=== PATIENT | male | born 1990 | race Two or more races ===

== ENCOUNTER 2020-06-25 10:48 | Emergency (ER) | payer MEDICARE, OTHER ==
[~2020-06-25] VITALS: Ht 167.6 cm; Wt 107.0 kg
--- NOTE | 2020-06-25 10:57 | NUR ---
came to ER From [facility], staff called 911; seizure event lasting <30 seconds;BS-128 mm/dl. pt on depakote per report and pt is non compliant with medication. awaiting for md jacques
--- NOTE | 2020-06-25 11:08 | NUR ---
seen and evaluated by
[2020-06-25 11:21] LABS: BASOPHILS % (AUTO) 0.5 % (0.0-2.0); EOSINOPHILS % (AUTO) 1.4 % (0.0-6.0); HEMATOCRIT 45 % (39-51); HEMOGLOBIN 15.4 g/dL (13.5-17.5); LYMPHOCYTES # (AUTO) 1.9 /CMM (0.8-4.8); LYMPHOCYTES % (AUTO) 34.7 % (20.0-44.0); MEAN CORPUSCULAR HGB CONC 34 g/dl (31.0-36.0); MEAN CORPUSCULAR VOLUME 84 fL (80-96); MONOCYTES # (AUTO) 0.5 /CMM (0.1-1.30); MONOCYTES % (AUTO) 8.5 % (2.0-12.0); NEUTROPHILS # (AUTO) 3.1 /CMM (1.8-8.9); NEUTROPHILS % (AUTO) 54.9 % (43.0-81.0); PLATELET COUNT (AUTO) 140 /CMM (150-450); RED BLOOD CELL COUNT(AUTO) 5.37 MIL/uL (4.5-6.0); WHITE BLOOD COUNT (AUTO) 5.6 K/uL (4.3-11.0)
[2020-06-25] MEDS ORDERED: IV NS 0.9% 1,000 ML BAG IV ONE (11:30)
--- NOTE | 2020-06-25 11:40 | NUR ---
PT TO CT AT THIS TIME
[2020-06-25 11:47] LABS: CALCIUM, SERUM 8.8 mg/dL (8.5-10.1); POTASSIUM 4.1 mmol/L (3.5-5.1)
--- NOTE | 2020-06-25 11:50 | NUR ---
PT BACK FROM CT
--- NOTE | 2020-06-25 12:00 | NUR ---
PT PULLED L AC IV SITE OUT AND STATED HER IS HEARING VOICES , PT IS A/OX3, DR FARIAS NOTIFIED , NEW IV SITE INSEARTED ON R WRIST G20 . CONTINUE TO MONITOR .
[2020-06-25] MEDS ORDERED: DIVALPROEX SODIUM 500 MG TABLET.DR PO ONE ×2 (12:30→12:34)
[2020-06-25] MEDS ORDERED: ONDANSETRON HCL/PF 4 MG/2 ML VIAL ONE (12:35)
[2020-06-25] MEDS ORDERED: ONDANSETRON HCL/PF 4 MG/2 ML VIAL IV ONE (13:00)
--- NOTE | 2020-06-25 14:00 | NUR ---
PT GOING BACK TO [facility] VIA AMBULANCE PER MD ORDER , REPORT GIVEN TO FACILITY .
--- NOTE | 2020-06-25 15:32 | NUR ---
CALLED [facility] FOR TRANSPORT TO [facility]. ETA 1730.
--- NOTE | 2020-06-25 17:59 | NUR ---
RIG WRIST IV SITE DISCOUNTINUED , PT DISCHARGED TO [facility] PER MD GOULD, IN STABLE CONDITION VIA AMBULANCE .
[2020-06-25 18:03] VITALS: BP 135/62
== END 2020-06-25 18:11 ==
LOC: ER 10:53
DX: G40.909 Epilepsy, unspecified, not intractable, without status epilepticus (principal); R51.9 Headache, unspecified; R00.0 Tachycardia, unspecified; J45.909 Unspecified asthma, uncomplicated; Z88.8 Allergy status to other drugs, medicaments and biological substances; Z91.013 Allergy to seafood
CPT/HCPCS: 36415; 70450; 80048; 80164; 85025; 96361; 96374; 99285; J2405; J7030 ×2

== ENCOUNTER 2021-06-30 21:33 | Emergency (ER) | payer MEDICARE, OTHER ==
[~2021-06-30] VITALS: Ht 170.2 cm; Wt 114.8 kg
--- NOTE | 2021-06-30 21:42 | NUR ---
MADELIN FROM [facility] C/O WITNESSED 1 MIN SEIZURE. PT STATES HE HAS BEEN COMPLIENT WITH PRESCRIBED DEPAKOTE. PATIENT PLACED ON THE MONITOR VSS AND SEIZURE PRECAUTIONS HAVE BEEN IMPLEMENTED. MD WAS AT BEDSIDE FOR EVAL.
[2021-06-30 22:25] LABS: BASOPHILS % (AUTO) 0.4 % (0.0-2.0); EOSINOPHILS % (AUTO) 1.5 % (0.0-6.0); HEMATOCRIT 41 % (39-51); HEMOGLOBIN 13.9 g/dL (13.5-17.5); LYMPHOCYTES # (AUTO) 2.9 K/uL (0.8-4.8); LYMPHOCYTES % (AUTO) 35.3 % (20.0-44.0); MEAN CORPUSCULAR HGB CONC 34 g/dl (31.0-36.0); MEAN CORPUSCULAR VOLUME 87 fL (80-96); MONOCYTES # (AUTO) 0.9 K/uL (0.1-1.30); MONOCYTES % (AUTO) 11.3 % (2.0-12.0); NEUTROPHILS # (AUTO) 4.3 K/uL (1.8-8.9); NEUTROPHILS % (AUTO) 51.5 % (43.0-81.0); PLATELET COUNT (AUTO) 160 K/uL (150-450); RED BLOOD CELL COUNT(AUTO) 4.75 MIL/uL (4.5-6.0); WHITE BLOOD COUNT (AUTO) 8.2 K/uL (4.3-11.0)
--- NOTE | 2021-06-30 22:29 | NUR ---
PATIENT TAKEN TO CT
[2021-06-30 22:34] LABS: BILIRUBIN,URINE NEGATIVE (NEGATIVE); COLOR,URINE YELLOW (YELLOW); LEUKOCYTE ESTERASE ,URINE NEGATIVE (NEGATIVE); NITRITE, URINE NEGATIVE (NEGATIVE); PROTEIN,URINE NEGATIVE (NEGATIVE); UGLUCOSE NEGATIVE (NEGATIVE); UROBILINOGEN,URINE 0.2 EU/dL (0.2)
[2021-06-30 22:41] LABS: CALCIUM, SERUM 7.9 mg/dL (8.5-10.1); POTASSIUM 3.8 mmol/L (3.5-5.1)
--- NOTE | 2021-06-30 22:57 | NUR ---
spoke to Art at [facility] intake re pt's status after discharge. Art will give me a call back once he speaks to the supervisor record press
[2021-06-30 22:59] LABS: BACTERIA,URINE Few /HPF (None Seen); RBC,URINE 0-2 /HPF (0-2); SQUAMOUS EPITHELIAL CELL,UR Few /HPF (None Seen); WBC,URINE 0-2 /HPF (0-3)
[2021-06-30 23:00] LABS: URINE AMORPHOUS PHOSPHATES Many /HPF (None Seen)
--- NOTE | 2021-06-30 23:59 | NUR ---
COVID SWAB SENT
--- NOTE | 2021-07-01 02:11 | NUR ---
FACE SHEET AND CLINICALS WERE FAXED TO [facility]
--- NOTE | 2021-07-01 03:06 | NUR ---
SPOKE TO ART AT [facility]. PT WILL GO TO [facility]. PT AGREED. AWAITING FOR ACCEPTANCE INFO
--- NOTE | 2021-07-01 04:41 | NUR ---
PT SLEEPING COMFORTABLY BREATHING EVEN AND UNLABORED. EASILY AROUSABLE VITAL SIGNS STABLE.
--- NOTE | 2021-07-01 08:59 | NUR ---
Patient discharged to home in stable condition. Written and verbal after care instructions given. Patient verbalizes understanding of instruction.
[2021-07-01 09:04] VITALS: BP 111/71
== END 2021-07-01 09:04 | disposition home or self-care (01) ==
LOC: ER 21:36
DX: G40.909 Epilepsy, unspecified, not intractable, without status epilepticus (principal); R45.851 Suicidal ideations; F17.200 Nicotine dependence, unspecified, uncomplicated; Z88.8 Allergy status to other drugs, medicaments and biological substances; J45.909 Unspecified asthma, uncomplicated; I10 Essential (primary) hypertension; Z20.822 Contact with and (suspected) exposure to COVID-19
CPT/HCPCS: 36415; 70450-TC; 71045-TC; 80048-TC; 80164-TC; 81001; 85025-TC; C9803

== ENCOUNTER 2022-08-12 16:05 | Emergency (ER) | payer MEDICARE, OTHER ==
[~2022-08-12] VITALS: Ht 170.2 cm; Wt 99.8 kg
--- NOTE | 2022-08-12 16:10 | NUR ---
BIBRA81 FRM SCHVN C/O SUDDEN ONSET CHEST PAIN X 1 HOUR. ASP 325 AND NITRO GIVEN SALES PROGRAM COORDINATOR W/ MINIMAL RELIEF. PLACED ON BED, AAOX4, ATTACHED TO MONITOR SHOWS SINUS RHYTHM ME- 85. SATURATING AT 98%RA.
[2022-08-12] MEDS ORDERED: LORAZEPAM INJ 2 MG/ML VIAL ONE ×2 (18:24→20:55)
--- NOTE | 2022-08-12 18:50 | NUR ---
URINE COLLECTED AND SENT TO LAB
[2022-08-12 18:52] LABS: CALCIUM, SERUM 8.9 mg/dL (8.5-10.1); CARBON DIOXIDE 25 mmol/L (21-32); CHLORIDE 103 mmol/L (98-107); CREATININE 1.1 mg/dL (0.6-1.3); GLUCOSE 88 mg/dL (74-106); POTASSIUM 3.3 mmol/L (3.5-5.1); SODIUM SERUM 137 mmol/L (136-145); UREA NITROGEN, BLOOD 15 mg/dL (7-18)
--- NOTE | 2022-08-12 18:53 | NUR ---
COVID SWAB DONE AND SENT TO LAB
--- NOTE | 2022-08-12 19:24 | NUR ---
PT A/OX4. TOLERATING R/A WELL WITH NO RESP DISTRESS. PT DENIES PAIN AT THIS TIME. ISABEL #20G S/L PATENT AND INTACT. CONNECTED TO POX AND MONITOR.
[2022-08-12] MEDS ORDERED: LORAZEPAM INJ 2 MG/ML VIAL IM ONE (19:30)
[2022-08-12] MEDS ORDERED: LORAZEPAM INJ 2 MG/ML VIAL IV ONE ×2 (19:30→21:00)
[2022-08-12 19:47] LABS: BASOPHILS % (AUTO) 0.1 % (0.0-2.0); EOSINOPHILS % (AUTO) 0.8 % (0.0-6.0); HEMATOCRIT 45 % (39-51); HEMOGLOBIN 15.6 g/dL (13.5-17.5); LYMPHOCYTES # (AUTO) 2.6 K/uL (0.8-4.8); MEAN CORPUSCULAR HGB CONC 34 g/dl (31.0-36.0); MEAN CORPUSCULAR VOLUME 83 fL (80-96); MONOCYTES # (AUTO) 0.6 K/uL (0.1-1.30); NEUTROPHILS # (AUTO) 4.7 K/uL (1.8-8.9); NEUTROPHILS % (AUTO) 59.1 % (43.0-81.0); PLATELET COUNT (AUTO) 206 K/uL (150-450); RED BLOOD CELL COUNT(AUTO) 5.45 MIL/uL (4.5-6.0); WHITE BLOOD COUNT (AUTO) 7.9 K/uL (4.3-11.0)
[2022-08-12] MEDS ORDERED: LEVETIRACETAM (500MG) 500 MG/5 ML VIAL IV ONE (20:55)
[2022-08-12] MEDS ORDERED: LEVETIRACETAM (500MG) 1,500 MG in IV NS 0.9% 100 ML IV SCH (21:00)
--- NOTE | 2022-08-12 21:14 | NUR ---
Patient does not wish to proceed with medical care recommended by Dr. [place]. Patient given information related to possible complications, up to and including , which could occur as a result of leaving the hospital at this time. Patient verbalizes understanding of risks involved due to leaving against medical advice. Patient has signed AMA form. IV removed. Catheter intact and site benign. Pressure and 4x4 applied to site. No bleeding noted. Pt ambulatory with a steady gait
[2022-08-12 21:33] VITALS: BP 120/75
== END 2022-08-12 21:15 | disposition left against medical advice (07) ==
LOC: ER 16:08
DX: G40.909 Epilepsy, unspecified, not intractable, without status epilepticus (principal); R07.9 Chest pain, unspecified; Z20.822 Contact with and (suspected) exposure to COVID-19; J45.909 Unspecified asthma, uncomplicated; Z88.8 Allergy status to other drugs, medicaments and biological substances; Z91.09 Other allergy status, other than to drugs and biological substances; I10 Essential (primary) hypertension; R94.31 Abnormal electrocardiogram [ECG] [EKG]; Z79.899 Other long term (current) drug therapy
CPT/HCPCS: 99291; 96372; 93005; 71045; 70450; 85025; 80048; 36415; 84484; 87426; 80320; 80307; J2060; C9803; G0480; J1953; J7030

== ENCOUNTER 2022-11-23 06:49 | Emergency (ER) | payer MEDICARE, OTHER ==
[~2022-11-23] VITALS: Ht 170.2 cm; Wt 102.1 kg
--- NOTE | 2022-11-23 07:00 | NUR ---
[id number]. S/P SEIZURE DESCRIBED TONIC CLONIC. PT REPORTS FEELING THE AURA AND LIED ON THE FLOIOR
--- NOTE | 2022-11-23 08:19 | NUR ---
Patient discharged to home in stable condition. Written and verbal after care instructions given. Patient verbalizes understanding of instruction.IV removed. Catheter intact and site benign. Pressure and 4x4 applied to site. No bleeding noted.
[2022-11-23 08:20] VITALS: BP 124/70
== END 2022-11-23 08:21 | disposition home or self-care (01) ==
LOC: ER 06:59
DX: G40.909 Epilepsy, unspecified, not intractable, without status epilepticus (principal); I10 Essential (primary) hypertension; J45.909 Unspecified asthma, uncomplicated; F17.200 Nicotine dependence, unspecified, uncomplicated; Z88.8 Allergy status to other drugs, medicaments and biological substances; Z60.2 Problems related to living alone
CPT/HCPCS: 71045-TC; 82962-TC

== ENCOUNTER 2022-11-27 21:20 | Emergency (ER) | payer MEDICARE, OTHER ==
[~2022-11-27] VITALS: Ht 170.2 cm; Wt 90.7 kg
[2022-11-27 21:32] VITALS: BP 131/76
--- NOTE | 2022-11-27 22:29 | NUR ---
SWAB FOR COVID19 SENT TO LAB
--- NOTE | 2022-11-27 22:48 | NUR ---
HAND WOVEN CARPET AND RUG MENDER AT PT'S BEDSIDE
[2022-11-27] MEDS ORDERED: GUAI600T53 PO (23:04)
--- NOTE | 2022-11-27 23:38 | NUR ---
Patient discharged to home in stable condition. Written and verbal after care instructions given. Patient verbalizes understanding of instruction.
== END 2022-11-27 21:32 | disposition home or self-care (01) ==
LOC: ER 21:22
DX: R05.9 Cough, unspecified (principal); R09.89 Other specified symptoms and signs involving the circulatory and respiratory systems; I10 Essential (primary) hypertension; J45.909 Unspecified asthma, uncomplicated; F20.9 Schizophrenia, unspecified; Z20.822 Contact with and (suspected) exposure to COVID-19; Z88.8 Allergy status to other drugs, medicaments and biological substances
CPT/HCPCS: 71045-TC; C9803

== ENCOUNTER 2023-04-29 10:18 | Emergency (ER) | payer BC, OTHER ==
[~2023-04-29] VITALS: Ht 170.2 cm; Wt 89.8 kg
[~2023-04-29 10:18] MED LIST: GUAI600T53 PO
[2023-04-29 11:23] LABS: CALCIUM, SERUM 8.9 mg/dL (8.5-10.1); CARBON DIOXIDE 32 mmol/L (21-32); CHLORIDE 105 mmol/L (98-107); GLUCOSE 95 mg/dL (74-106); SODIUM SERUM 140 mmol/L (136-145); UREA NITROGEN, BLOOD 11 mg/dL (7-18)
[2023-04-29 11:33] LABS: BASOPHILS % (AUTO) 0.3 % (0.0-2.0); EOSINOPHILS # (AUTO) 0.1 K/uL (0.0-0.7); EOSINOPHILS % (AUTO) 1.6 % (0.0-6.0); HEMATOCRIT 46 % (39-51); HEMOGLOBIN 15.2 g/dL (13.5-17.5); LYMPHOCYTES # (AUTO) 1.6 K/uL (0.8-4.8); LYMPHOCYTES % (AUTO) 28.8 % (20.0-44.0); MEAN CORPUSCULAR HEMOGLOBIN 28 PG (26.0-33.0); MEAN CORPUSCULAR HGB CONC 33 g/dl (31.0-36.0); MEAN CORPUSCULAR VOLUME 85 fL (80-96); MONOCYTES # (AUTO) 0.3 K/uL (0.1-1.30); NEUTROPHILS # (AUTO) 3.6 K/uL (1.8-8.9); NEUTROPHILS % (AUTO) 63.3 % (43.0-81.0); PLATELET COUNT (AUTO) 167 K/uL (150-450); RED BLOOD CELL COUNT(AUTO) 5.39 MIL/uL (4.5-6.0); WHITE BLOOD COUNT (AUTO) 5.7 K/uL (4.3-11.0)
[2023-04-29 13:00] VITALS: BP 115/60; TEMP 98.3; O2SAT 98
== END 2023-04-29 13:00 | disposition home or self-care (01) ==
LOC: ER 10:20
DX: R07.89 Other chest pain (principal); I10 Essential (primary) hypertension; J45.909 Unspecified asthma, uncomplicated; F20.9 Schizophrenia, unspecified; F17.210 Nicotine dependence, cigarettes, uncomplicated; Z79.899 Other long term (current) drug therapy; Z91.013 Allergy to seafood; Z88.1 Allergy status to other antibiotic agents
CPT/HCPCS: 36415; 71045-TC; 80048-TC; 84484-TC; 85025-TC

== ENCOUNTER 2024-04-30 09:21 | Emergency (ER) | payer BC, MEDICAID ==
[~2024-04-30] VITALS: Ht 170.2 cm; Wt 99.8 kg
[2024-04-30] MEDS: IV NS 0.9% 1,000 ML BAG IV ONE (09:31)
[2024-04-30] MEDS: LEVETIRACETAM (500MG) 500 MG in IV NS 0.9% 100 ML IV STA (09:31)
[2024-04-30 09:40] VITALS: TEMP 98
[2024-04-30 10:05] VITALS: BP 126/74; O2SAT 99
== END 2024-04-30 10:08 | disposition home or self-care (01) ==
LOC: ER 09:23
DX: R56.9 Unspecified convulsions (principal); I10 Essential (primary) hypertension; J45.909 Unspecified asthma, uncomplicated; Z91.013 Allergy to seafood; Z88.8 Allergy status to other drugs, medicaments and biological substances
CPT/HCPCS: 99284; 96365; 93005; J7030; J1953

== ENCOUNTER 2025-04-16 15:04 | Emergency (ER) | payer BC, MEDICAID, OTHER ==
[~2025-04-16] VITALS: Ht 170.2 cm; Wt 98.4 kg
[2025-04-16] MEDS: IV NS 0.9% 1,000 ML BAG IV ONE (15:31)
[2025-04-16] MEDS: LEVETIRACETAM (500MG) 1,500 MG in IV NS 0.9% 85 ML IV SCH (16:04)
[2025-04-16 16:13] LABS: CALCIUM, SERUM 7.8 mg/dL (8.5-10.1); CREATININE 0.6 mg/dL (0.6-1.3); SODIUM SERUM 131.0 mmol/L (136-145); UREA NITROGEN, BLOOD 16.0 mg/dL (7-18)
[2025-04-16 16:24] LABS: PLATELET COUNT (AUTO) 189 K/uL (150-450); RED BLOOD CELL COUNT(AUTO) 5.49 MIL/uL (4.5-6.0); RED CELL DISTRIBUTION WIDTH 13.8 % (11.5-15.0); WHITE BLOOD COUNT (AUTO) 6.5 K/uL (4.3-11.0)
[2025-04-16] MEDS ORDERED: Calcium Gluconate 1GM/10ML 4.65 MEQ in IV NS 0.9% 100 ML IV ONE (17:00)
[2025-04-16] MEDS: CALCIUM CARBONATE 500 MG TAB.CHEW PO ONE (17:14)
[2025-04-16 18:32] VITALS: BP 117/75; TEMP 98.9; O2SAT 98
== END 2025-04-16 18:36 ==
LOC: ER 15:09
DX: G40.909 Epilepsy, unspecified, not intractable, without status epilepticus (principal); E83.51 Hypocalcemia; F17.200 Nicotine dependence, unspecified, uncomplicated; F20.9 Schizophrenia, unspecified; I10 Essential (primary) hypertension; J45.909 Unspecified asthma, uncomplicated; Z79.899 Other long term (current) drug therapy; Z88.8 Allergy status to other drugs, medicaments and biological substances; Z91.018 Allergy to other foods
CPT/HCPCS: 99285; 96365; 96361; 93005; 85025; 80048; 36415; J0612; J7030 ×3; J1953